=== PATIENT | male | born 1975 | race African-American/Black ===

== ENCOUNTER → 2018-01-03 | Outpatient (CLI) | payer OTHER ==
[~2018-01-03] MED LIST: ATENOLOL 50MG T50 M1 PO; GABAPENTIN 100100 MG PO; HYDROXYZINE PAM25 M1 PO; IMITREX 50 MG T50 MG PO; LIDOCAINE 5% TRANSDERM; LIORESAL 10 MG10 MG PO; MOBIC15 MG PO; NICOTINE TRANSD14 M1 TRANSDERM; NICOTINE TRANSD21 M1; NICOTINE TRANSDERM; PRAZOSIN 1 MG CA1 M1 PO; PROZAC20 MG PO; TRAZODONE HCL100 MG PO; TRAZODONE HCL50 MG PO; [UNRECOGNIZED DRUG - SUPPLY] MC
--- NOTE | 2018-01-16 14:39 | PAINCON ---
[address] [address] PAIN MANAGEMENT CONSULTATION Name: PARTHSAVANAH THERESA Room: [facility] GhotraBret#: [id number] Admission: 01/03/18 Attend Phys: Alex Rodriguez MD Discharge: Date of : 79 Report #: [id number] THIS REPORT FOR: //name// CC: FAM kun Rodriguez [facility] DATE OF SERVICE: 01/03/2018 CHIEF COMPLAINT: Pain in the left leg. HISTORY OF PRESENT ILLNESS: The patient is a 42-year-old gentleman, who has been referred to the pain clinic for evaluation. He has been experiencing pain and discomfort since 11/2017. It involves his left leg. He has been experiencing pain and discomfort down in the posterior portion of his thigh and hamstring and pain is most problematic in the posterior portion of his knee. He denies any trauma. Notes that the pain is better when he lies down. He has difficulty sitting. Sitting for prolonged periods of time significantly exacerbate his pain. He rates it as an 8/10 at that juncture. He describes it as a shooting, cramping, throbbing pain and discomfort. He has not noticed significant improvement in the pain after use of nonsteroidal anti-inflammatory medications. He has not had surgery on this area. He said that he had had some problems with the meniscus in this leg. He has tried meloxicam and muscle relaxants, but did not find them to be significantly helpful. The patient states that he has been told that he has a bulging disk. Notes some tingling in his left foot at times. He has been seen in the emergency room at [place]. States that he was given Moriarty, which provided some relief. Pain is an 8/10 today. Use of hydrocodone provided 80% to 90% improvement in pain. Notes that the pain is quite problematic when he is getting in and out of the car. Standing, sitting, and climbing stairs can be problematic. Notes that pain improve somewhat with use of the above medication and with repositioning. ALLERGIES: No known drug allergies. CURRENT MEDICATIONS: Include atenolol 50 mg daily, baclofen 10 mg one p.o. and 5 mg by mouth as needed p.r.n. muscle spasms, and Prozac 20 mg daily, total of 40 mg. Gabapentin (Neurontin) 100 mg t.i.d., hydroxyzine 25 mg 2 tablets at bedtime p.r.n. anxiety, meloxicam 15 mg 1 p.o. daily, prazosin 1 capsule at bedtime, Imitrex 50 mg for onset of headache, trazodone 50 mg at bedtime, Lidoderm 5% ointment apply to affected area b.i.d., left knee. Nicotine patch 7 mg applied to skin in the morning, transdermal. PAST MEDICAL HISTORY: 1. Joint disease/arthritis. 2. Pain in the left posterior leg. 3. [place] [address] PAIN MANAGEMENT CONSULTATION Name: SAVANAH ALBA Room: [facility]#: [id number] Admission: 01/03/18 Attend Phys: Alex Rodriguez MD Discharge: Date of : 79 Report #: [id number] 4. Depression. 5. Headaches. 6. Posttraumatic stress disorder. SOCIAL HISTORY: He is unemployed, has been off work for 3 years. REVIEW OF SYSTEMS: Questionnaire in the chart indicates generally good health, recent weight change, loss of appetite, joint pain, joint stiffness, weakness, muscle pain, cramps, back pain, and difficulty walking. RADIOLOGIC DATA: Lumbar spine 4 views, date of exam 12/07/2017, reveals lumbosacral spine 4 views. Reason for study, low back. Indication, low back pain. Seven images of lumbar spine compared to 03/07/2016. Five aef-[id number]-[id number] lumbar type vertebral bodies. The vertebral pedicles are intact. The vertebral height and alignment is normal. There is relative loss of normal lordosis with straightening of the spine. Intervertebral disk spaces are relatively well preserved. Mild lumbar developmental bone canal stenosis cannot be excluded, particularly below L4, partially seen SI joints are normal. Paravertebral soft tissues are grossly unremarkable. Costochondral calcifications. Impression, loss of lumbar lordosis can be seen with muscle spasm or positioning. Equivocal findings of mild lower lumbar developmental bone canal narrowing. Primary diagnostic code, indeterminant. Secondary diagnoses code, minor abnormality. PAIN CLINIC ASSESSMENT: 1. Osteoarthritis/rheumatoid arthritis. The patient is currently being treated for those as such. 2. Height 5 feet 9 inches, weight 130 pounds, BMI is 19. 3. Vital signs, blood pressure 154/98, heart rate 100, respiratory rate 16, room air saturation is 98%, temperature 98.1. 4. Pain intensity 8/10. 5. Fall risk. The patient has not fallen in the last 3 months. 6. Blood thinner. The patient is not taking a blood thinning medication. 7. History of hypertension. The patient is being treated for hypertension. 8. Opioid therapy greater than 6 weeks. The patient is not on opioid therapy. 9. Risk assessment tool. 10. Functional assessment tool. The patient rates his pain impact score as a 62/70 in regards to general activity, mood, walking ability, work, relationships with others, sleep, and enjoyment in life. PHYSICAL EXAMINATION: GENERAL: The patient is a well-developed black male. Appears stated age. He is alert and oriented x 3. Affect appropriate. HEENT: Normocephalic, atraumatic. Extraocular eye muscles intact. Hearing within normal limits. No complaints of nasal problems. Moist buccal membranes. LUNGS: [place] [address] PAIN MANAGEMENT CONSULTATION Name: PARTHSAVANAH THERESA Room: [facility]#: [id number] Admission: 01/03/18 Attend Phys: Alex Rodriguez MD Discharge: Date of : 79 Report #: [id number] HEART: Regular rate. ABDOMEN: Nontender. MUSCULOSKELETAL: Normal alignment without significant scoliosis or kyphosis. The patient walks with an antalgic gait. He has a wide-based gait. Complains of pain in the left popliteal area. Upper extremity musculature appears symmetrical and 5/5 in major muscle strength. Lumbar evaluation, no significant paraspinal muscle soreness. No step-offs. The patient has some discomfort in the left buttocks area and some discomfort down in the left posterior knee area and the popliteal area. Complains of focal discomfort in the area of the posterior portion of his knee. Movement of the patellar area and the knee was not problematic. Palpation of the patellar ligament did not create any significant discomfort. Palpation in the area of the medial collateral ligament did not cause significant discomfort. Palpation of the anterolateral and lateral collateral ligaments were not significantly painful. Palpation in the popliteal area for pulse, was difficult to appreciate, but during this manipulation, the patient noticed worsening of pain and discomfort, particularly in the area of the popliteal and areas of the gastrocnemius muscle. Anterior and posterior spring tests were negative. Mulugeta sign was negative, left and right. Positioning of the left leg off of the bed cause some increased discomfort in the left posterior thigh and knee area. Dependent positioning of the right leg was not problematic. Major muscle groups on the right are judged to be 5/5. The patient does give way and break to movement and palpation in the left lower extremity. Muscle bulk appears to be within normal limits and symmetrical bilaterally in the left and right lower extremity. IMPRESSION: Left posterior leg pain and discomfort in the popliteal area. Possible Lopez's cyst. RECOMMENDATIONS: We discussed treatment options with the patient. At this juncture, the patient continues to have pain and discomfort. Palpation in the popliteal area causes a reproduction of pain and discomfort. He is not having as much pain radiating down in the posterior portion in the L5-S1 distribution, but it appears to be more focal and located in the popliteal area. This could be better evaluated with an MRI of the knee. We will proceed with an MRI of the knee, and after this we would determine which way to proceed. The patient will continue with his current medications of meloxicam, trazodone and will return to the pain clinic for evaluation. <ELECTRONICALLY SIGNED> By: Alex Rodriguez MD 01/16/18 [id number]. Bulmaro Rodriguez MD /nt
== END ==
LOC: M.PC 02:38
DX: M79.605 Pain in left leg (principal); I10 Essential (primary) hypertension; F32.9 Major depressive disorder, single episode, unspecified; F43.10 Post-traumatic stress disorder, unspecified